=== PATIENT | male | born 1945 | race Caucasian/White ===

== ENCOUNTER 2019-06-29 15:50 | Outpatient (CLI) | payer MEDICARE ==
--- NOTE | 2019-06-29 16:33 | CT ---
CT Stone Protocol 06/29/2019 12:00 AM HISTORY: Calculus of kidney. COMPARISON: Studies on 05/27/2017 and 10/26/2013 obtained [facility]. Technique: Multiple contiguous axial CT images are obtained through the abdomen and pelvis without IV contrast. Coronal reformats are provided. FINDINGS: This examination is limited for the evaluation of solid organs and vascular structures due to the lac k of intravenous contrast. Lower Chest: The lung bases are clear. Abdomen: Liver: Subcentimeter too small to characterize hypodense lesions are again seen in each lobe of liver with a stable larger lobulated hypodense lesion in the lateral segment left hepatic lobe statistically likely related to cysts. These lesions were present on the prior exam. There has been m ild interval enlargement of the larger lesion in the lateral segment left hepatic lobe. Gallbladder: Within normal limits for CT imaging. Pancreas: within normal limits. Spleen: within normal limits. Adrenals: within normal limits. Kidneys: There is an irregular shaped hypodense exophytic lesion posterior aspect midportion right ki dney. This overall measures similar in size to the study in 2017. There was a much larger exophytic hypodense lesions in this region on a prior study in 2008, and findings may be related to interval tr eatment and sclerosis of a large right renal cyst. Clinical correlation is recommended. Although this cystic lesion has irregular margins, the lesion is smaller in size compared to studies in 2008 a 2012 and stable compared to 2017. No renal calculi are seen bilaterally, and there is no evidence of hydronephrosis. Ureters: Small 4 mm calculus is seen in the distal left ureter without significant hydronephrosis or hydroureter present. No distal ureteral calculus is seen.. Pelvis: Urinary bladder: Mostly decompressed. Reproductive Organs: No pelvic masses. Lymph Nodes: No enlarged lymph nodes. Bowel: Colonic diverticulosis is present diffusely throughout the colon. Loops of small bowel are nor mal in caliber. Appendix: The appendix is normal in caliber. Peritoneum: No free fluid, free air, or fluid collection. Retroperitoneum: within normal limits. Vessels: Mild vascular calcifications are seen in the abdominal aorta and iliac arteries. The iliac a rteries are tortuous.. Abdominal Wall: within normal limits. Bones: Degenerative changes are seen in the spine. IMPRESSION: 1. Distal left ureteral calculus measuring 4 mm without hydronephrosis or hydroureter. 2. Stable irregular shaped exophytic cystic lesion posterior aspect midportion right kidney. This is at site of a large exophytic cyst on study in 2009. Findings could be related to interval treatment and possibly sclerosis of the cystic lesion. Clinical correlation suggested. 3. Colonic diverticulosis. 4. Stable hypodense hepatic lesions likely due to hepatic cysts.
== END 2019-06-29 15:51 | disposition home or self-care (01) ==
LOC: BICCT 15:50
PROVIDERS: ATTEND Urology
DX: N20.0 Calculus of kidney (principal); N20.1 Calculus of ureter; N28.1 Cyst of kidney, acquired; K57.30 Diverticulosis of large intestine without perforation or abscess without bleeding; N28.9 Disorder of kidney and ureter, unspecified
CPT/HCPCS: 74176

== ENCOUNTER 2020-05-24 08:48 | Outpatient (CLI) | payer MEDICARE ==
--- NOTE | 2020-05-24 09:09 | ULT ---
ULTRASOUND RETROPERITONEUM LIMITED: (ABDOMINAL AORTA) DATE: 05/24/2020 HISTORY: 74-year-old male resents for screening for abdominal aortic aneurysm FINDINGS: The caliber of the entire abdominal aorta is within normal limits. IMPRESSION: No abdominal aortic aneurysm.
== END 2020-05-24 08:49 | disposition home or self-care (01) ==
LOC: BICULT 08:48
PROVIDERS: ATTEND Internal Medicine
DX: Z13.6 Encounter for screening for cardiovascular disorders (principal)
CPT/HCPCS: 76706

== ENCOUNTER 2023-08-17 17:00 | Outpatient (CLI) | payer MEDICARE | END 2023-08-17 17:01 | disposition home or self-care (01) | LOC: SLEEPLAB 17:00 | PROVIDERS: ATTEND Internal Medicine | DX: G47.33 Obstructive sleep apnea (adult) (pediatric) (principal); R53.83 Other fatigue; F41.8 Other specified anxiety disorders; R06.83 Snoring; I10 Essential (primary) hypertension | CPT/HCPCS: 95810 ==

== ENCOUNTER 2023-10-05 17:00 | Outpatient (CLI) | payer MEDICARE | END 2023-10-05 17:01 | disposition home or self-care (01) | LOC: SLEEPLAB 17:00 | PROVIDERS: ATTEND Internal Medicine | DX: G47.33 Obstructive sleep apnea (adult) (pediatric) (principal); R53.83 Other fatigue; F41.8 Other specified anxiety disorders; R06.83 Snoring; I10 Essential (primary) hypertension | CPT/HCPCS: 95811 ==

== ENCOUNTER 2024-05-19 15:27 | Emergency (ER) | payer MEDICARE, OTHER ==
[2024-05-19 16:13] LABS: #Basophils 0.05 10x3/uL (0.0-0.2); %Basophils 0.7 % (0.0-1.0); %Eosinophils 5.3 % (0.0-10.0); %Lymphocytes 20.4 % (21.0-51.0); %Monocytes 13.7 % (0.0-10.0); %Neutrophils 59.6 % (42.0-75.0); Hematocrit 48.7 % (42.0-52.0); Hemoglobin 16.3 g/dL (14.0-18.0); Mean Corpuscular HGB CONC 33.5 g/dL (32.0-36.0); Mean Corpuscular Hemoglobin 30.7 pg (27.0-31.0); Mean Corpuscular Volume 91.7 fL (78.0-98.0); Mean Platelet Volume 9.4 fL (7.4-10.4); Platelet Count 269 10x3/uL (130-400); RBC Distribution Width 20.7 % (11.5-14.5); Red Blood Cell (RBC) Count 5.31 mill/uL (4.70-6.10)
[2024-05-19 16:35] LABS: ALT (SGPT) 38 U/L (8-55); AST (SGOT) 41 U/L (5-34); Albumin 4.1 g/dL (3.4-4.8); Alkaline Phosphatase 69 U/L (40-110); Anion Gap 16 mmol/L (10-20); BUN (Urea Nitrogen) 16 mg/dL (8.4-25.7); Bilirubin, Total 1.1 mg/dL (0.2-1.2); Calc. Creatinine Clearance 0 mL/min (70-130); Calcium 9.8 mg/dL (7.8-10.44); Carbon Dioxide 26 mmol/L (23-31); Chloride 105 mmol/L (98-107); Estimated GFR 73; Globulin 2.7 g/dL (2.4-3.5); Glucose 99 mg/dL (83-110); Potassium 4.7 mmol/L (3.5-5.1); Protein, Total 6.8 g/dL (5.8-8.1); Sodium 142 mmol/L (136-145)
[2024-05-19 16:40] LABS: Troponin I Less than 0.010 ng/mL (< 0.028)
== END 2024-05-19 17:08 | disposition home or self-care (01) ==
LOC: ERS 15:27
DX: R07.89 Other chest pain (principal); I11.0 Hypertensive heart disease with heart failure; I50.9 Heart failure, unspecified; I48.91 Unspecified atrial fibrillation; E78.5 Hyperlipidemia, unspecified; Z79.01 Long term (current) use of anticoagulants; Z79.899 Other long term (current) drug therapy
CPT/HCPCS: 36415; 71045; 80053; 84484; 85025; 93005

== ENCOUNTER 2025-06-24 22:38 | Inpatient (IN) | payer MEDICARE, OTHER ==
[2025-06-24 23:13] LABS: #Basophils 0.05 10x3/uL (0.0-0.2); #Eosinophils 0.13 10x3/uL (0.0-0.7); #Monocytes 1.42 10x3/uL (0.11-0.59); #Neutrophils 13.80 10x3/uL (1.40-6.50); %Basophils 0.3 % (0.0-1.0); %Eosinophils 0.8 % (0.0-10.0); %Lymphocytes 10.1 % (21.0-51.0); %Monocytes 8.2 % (0.0-10.0); %Neutrophils 80.1 % (42.0-75.0); Hematocrit 41.1 % (42.0-52.0); Hemoglobin 13.2 g/dL (14.0-18.0); Mean Corpuscular Hemoglobin 28.8 pg (27.0-31.0); Mean Corpuscular Volume 89.5 fL (78.0-98.0); Platelet Count 307 10x3/uL (130-400); Red Blood Cell (RBC) Count 4.59 mill/uL (4.70-6.10); White Blood Cell (WBC) Count 17.22 10x3/uL (4.8-10.8)
[2025-06-24 23:31] LABS: ALT (SGPT) 25 U/L (Less than 45); AST (SGOT) 84 U/L (11-34); Albumin 3.9 g/dL (3.1-4.5); Alkaline Phosphatase 56 U/L (40-110); Anion Gap 14 mmol/L (10-20); BUN (Urea Nitrogen) 21 mg/dL (8.4-25.7); Bilirubin, Total 0.5 mg/dL (0.3-1.2); Calc. Creatinine Clearance 0 mL/min (70-130); Calcium 9.1 mg/dL (7.8-10.44); Carbon Dioxide 24 mmol/L (23-31); Chloride 105 mmol/L (98-107); Globulin 2.9 g/dL (2.4-3.5); Glucose 120 mg/dL (83-110); Potassium 4.3 mmol/L (3.5-5.1); Sodium 139 mmol/L (136-145)
[2025-06-25 03:28] VITALS: BMI 28.5
[2025-06-25] MEDS ORDERED: Acetaminophen 325 MG TAB PO PRN (04:23)
[2025-06-25] MEDS ORDERED: Ondansetron PF 4 MG/2 ML Vial IVP PRN (04:23)
[2025-06-25 05:16] LABS: Troponin I 6.396 ng/mL (< 0.028)
[2025-06-25] MEDS: Apixaban 5 MG TAB PO SCH (08:09)
[2025-06-25 08:53] LABS: Troponin I 6.527 ng/mL (< 0.028)
[2025-06-25 09:44] LABS: #Basophils 0.05 10x3/uL (0.0-0.2); #Eosinophils 0.40 10x3/uL (0.0-0.7); #Monocytes 0.99 10x3/uL (0.11-0.59); #Neutrophils 10.45 10x3/uL (1.40-6.50); %Basophils 0.4 % (0.0-1.0); %Eosinophils 2.9 % (0.0-10.0); %Lymphocytes 13.0 % (21.0-51.0); %Monocytes 7.2 % (0.0-10.0); %Neutrophils 76.1 % (42.0-75.0); Hematocrit 40.6 % (42.0-52.0); Hemoglobin 12.6 g/dL (14.0-18.0); Mean Corpuscular Hemoglobin 28.2 pg (27.0-31.0); Mean Corpuscular Volume 90.8 fL (78.0-98.0); Platelet Count 271 10x3/uL (130-400); Red Blood Cell (RBC) Count 4.47 mill/uL (4.70-6.10); White Blood Cell (WBC) Count 13.73 10x3/uL (4.8-10.8)
[2025-06-25 10:16] LABS: Anion Gap 12 mmol/L (10-20); BUN (Urea Nitrogen) 21 mg/dL (8.4-25.7); Calc. Creatinine Clearance 75 mL/min (70-130); Calcium 8.7 mg/dL (7.8-10.44); Carbon Dioxide 28 mmol/L (23-31); Chloride 105 mmol/L (98-107); Glucose 127 mg/dL (83-110); Potassium 4.1 mmol/L (3.5-5.1); Sodium 141 mmol/L (136-145)
[2025-06-25 10:23] LABS: Critical Call Chem Troponin I RESULT DECREASING; Troponin I 6.343 ng/mL (< 0.028)
[2025-06-25] MEDS ORDERED: Non-Formulary Item 1 EACH (Buspirone Hcl [Buspirone Hcl] 15 MG Tablet) PO SCH (21:00)
[2025-06-26 00:18] LABS: Bacteria/HPF None Seen HPF (None Seen); CAUTI Indications for Culture Dysuria,urgency,freq; Glucose, Urine (Dipstick) Normal (Negative); Leukocyte Negative Leu/uL (Negative); Protein, Urine (Dipstick) Negative (Neg-Trace); RBC/HPF 0-3 HPF (0-3); Specific Gravity, Urine 1.014 (1.002-1.036); WBC/HPF 0-3 HPF (0-3)
[2025-06-26 00:29] LABS: Urine Culture Reflex No No
[2025-06-26 04:57] LABS: #Basophils 0.08 10x3/uL (0.0-0.2); #Eosinophils 0.68 10x3/uL (0.0-0.7); #Monocytes 1.33 10x3/uL (0.11-0.59); #Neutrophils 7.72 10x3/uL (1.40-6.50); %Basophils 0.7 % (0.0-1.0); %Eosinophils 5.7 % (0.0-10.0); %Lymphocytes 16.9 % (21.0-51.0); %Monocytes 11.2 % (0.0-10.0); %Neutrophils 65.0 % (42.0-75.0); Hematocrit 38.3 % (42.0-52.0); Hemoglobin 12.2 g/dL (14.0-18.0); Mean Corpuscular Hemoglobin 28.8 pg (27.0-31.0); Mean Corpuscular Volume 90.5 fL (78.0-98.0); Platelet Count 252 10x3/uL (130-400); Red Blood Cell (RBC) Count 4.23 mill/uL (4.70-6.10); White Blood Cell (WBC) Count 11.88 10x3/uL (4.8-10.8)
[2025-06-26 05:15] LABS: Anion Gap 11 mmol/L (10-20); BUN (Urea Nitrogen) 18 mg/dL (8.4-25.7); Calc. Creatinine Clearance 84 mL/min (70-130); Calcium 8.5 mg/dL (7.8-10.44); Carbon Dioxide 25 mmol/L (23-31); Chloride 106 mmol/L (98-107); Glucose 93 mg/dL (83-110); Potassium 4.3 mmol/L (3.5-5.1); Sodium 138 mmol/L (136-145)
[2025-06-26] MEDS ORDERED: PROPOFOL 20 ML ONE (12:37)
[2025-06-26] MEDS: Calcitriol 0.25 MCG CAP PO SCH (13:34)
[2025-06-26] MEDS ORDERED: Lidocaine 1% PF 5 ML VIAL ONE (13:45)
[2025-06-26] MEDS: Rosuvastatin 5 MG TAB PO SCH (22:02)
[2025-06-28 10:58] VITALS: BP 128/80; TEMP 98.1
== END 2025-06-28 12:30 | disposition home or self-care (01) | DRG 309 ==
LOC: ERS 22:38 → 2NO 06-25 02:47 → OBSVTOIN 06-27 08:23
PROVIDERS: ADMIT Internal Medicine; ATTEND Emergency Medicine
PROC: 5A09357 Assistance with Respiratory Ventilation, Less than 24 Consecutive Hours, Continuous Positive Airway Pressure (ICD-10-PCS; 2025-06-25)
PROC: 5A2204Z Restoration of Cardiac Rhythm, Single (ICD-10-PCS; principal; 2025-06-26)
DX: I48.19 Other persistent atrial fibrillation (principal); I50.22 Chronic systolic (congestive) heart failure; I48.92 Unspecified atrial flutter; I11.0 Hypertensive heart disease with heart failure; E78.5 Hyperlipidemia, unspecified; G47.33 Obstructive sleep apnea (adult) (pediatric); R79.89 Other specified abnormal findings of blood chemistry; D72.829 Elevated white blood cell count, unspecified; F41.9 Anxiety disorder, unspecified; F42.9 Obsessive-compulsive disorder, unspecified; N40.0 Benign prostatic hyperplasia without lower urinary tract symptoms; Z98.890 Other specified postprocedural states; Z82.49 Family history of ischemic heart disease and other diseases of the circulatory system; Z91.041 Radiographic dye allergy status; Z87.442 Personal history of urinary calculi; Z79.899 Other long term (current) drug therapy; Z79.01 Long term (current) use of anticoagulants; I49.5 Sick sinus syndrome; F31.9 Bipolar disorder, unspecified
CPT/HCPCS: 36415; 71045; 80048; 80053; 81001; 84484; 85025; 92960; 93005; 93010; 93312; G0378; J2704

== ENCOUNTER 2025-07-31 16:16 | Emergency (ER) | payer MEDICARE, OTHER | END 2025-07-31 21:00 | disposition home or self-care (01) | LOC: ERS 16:16 | DX: S00.01XA Abrasion of scalp, initial encounter (principal); I11.0 Hypertensive heart disease with heart failure; I50.9 Heart failure, unspecified; I48.91 Unspecified atrial fibrillation; Z79.01 Long term (current) use of anticoagulants; Z55.6 Problems related to health literacy; W18.30XA Fall on same level, unspecified, initial encounter | CPT/HCPCS: 70450; 72125 ==

== ENCOUNTER 2025-08-04 08:57 | Emergency (ER) | payer MEDICARE, OTHER ==
[2025-08-04 09:21] LABS: #Basophils 0.06 10x3/uL (0.0-0.2); #Eosinophils 0.30 10x3/uL (0.0-0.7); #Monocytes 1.15 10x3/uL (0.11-0.59); #Neutrophils 7.17 10x3/uL (1.40-6.50); %Basophils 0.6 % (0.0-1.0); %Eosinophils 2.8 % (0.0-10.0); %Lymphocytes 19.5 % (21.0-51.0); %Monocytes 10.6 % (0.0-10.0); %Neutrophils 66.0 % (42.0-75.0); Hematocrit 43.8 % (42.0-52.0); Hemoglobin 13.8 g/dL (14.0-18.0); Mean Corpuscular Hemoglobin 26.8 pg (27.0-31.0); Mean Corpuscular Volume 85.0 fL (78.0-98.0); Platelet Count 310 10x3/uL (130-400); Red Blood Cell (RBC) Count 5.15 mill/uL (4.70-6.10); White Blood Cell (WBC) Count 10.84 10x3/uL (4.8-10.8)
[2025-08-04 09:37] LABS: ALT (SGPT) 16 U/L (Less than 45); AST (SGOT) 26 U/L (11-34); Albumin 3.9 g/dL (3.1-4.5); Alkaline Phosphatase 63 U/L (40-110); Anion Gap 14 mmol/L (10-20); BUN (Urea Nitrogen) 11 mg/dL (8.4-25.7); Bilirubin, Total 0.7 mg/dL (0.3-1.2); Calc. Creatinine Clearance 0 mL/min (70-130); Calcium 8.9 mg/dL (7.8-10.44); Carbon Dioxide 22 mmol/L (23-31); Chloride 105 mmol/L (98-107); Globulin 2.8 g/dL (2.4-3.5); Glucose 107 mg/dL (83-110); Potassium 4.5 mmol/L (3.5-5.1); Sodium 136 mmol/L (136-145)
== END 2025-08-04 12:30 | disposition home or self-care (01) ==
LOC: ERS 08:57
DX: I48.91 Unspecified atrial fibrillation (principal); I11.0 Hypertensive heart disease with heart failure; I50.9 Heart failure, unspecified; R00.1 Bradycardia, unspecified; Z79.01 Long term (current) use of anticoagulants; Z79.899 Other long term (current) drug therapy
CPT/HCPCS: 71045; 80053; 83880; 84484; 85025; 93005

== ENCOUNTER 2025-08-05 08:38 | Emergency (ER) | payer MEDICARE, OTHER ==
[2025-08-05 08:54] LABS: #Basophils 0.06 10x3/uL (0.0-0.2); #Eosinophils 0.23 10x3/uL (0.0-0.7); #Monocytes 0.93 10x3/uL (0.11-0.59); #Neutrophils 7.61 10x3/uL (1.40-6.50); %Basophils 0.6 % (0.0-1.0); %Eosinophils 2.2 % (0.0-10.0); %Lymphocytes 13.6 % (21.0-51.0); %Monocytes 9.1 % (0.0-10.0); %Neutrophils 74.2 % (42.0-75.0); Hematocrit 42.9 % (42.0-52.0); Hemoglobin 13.0 g/dL (14.0-18.0); Mean Corpuscular Hemoglobin 26.5 pg (27.0-31.0); Mean Corpuscular Volume 87.4 fL (78.0-98.0); Platelet Count 308 10x3/uL (130-400); Red Blood Cell (RBC) Count 4.91 mill/uL (4.70-6.10); White Blood Cell (WBC) Count 10.26 10x3/uL (4.8-10.8)
[2025-08-05 09:21] LABS: ALT (SGPT) 17 U/L (Less than 45); AST (SGOT) 23 U/L (11-34); Albumin 3.8 g/dL (3.1-4.5); Alkaline Phosphatase 64 U/L (40-110); Anion Gap 14 mmol/L (10-20); BUN (Urea Nitrogen) 14 mg/dL (8.4-25.7); Bilirubin, Total 0.8 mg/dL (0.3-1.2); Calc. Creatinine Clearance 0 mL/min (70-130); Calcium 9.3 mg/dL (7.8-10.44); Carbon Dioxide 23 mmol/L (23-31); Chloride 104 mmol/L (98-107); Globulin 2.8 g/dL (2.4-3.5); Glucose 105 mg/dL (83-110); Potassium 4.3 mmol/L (3.5-5.1); Sodium 137 mmol/L (136-145)
== END 2025-08-05 11:15 | disposition home or self-care (01) ==
LOC: ERS 08:38
DX: R00.2 Palpitations (principal); I11.0 Hypertensive heart disease with heart failure; I50.9 Heart failure, unspecified; I48.91 Unspecified atrial fibrillation; E78.5 Hyperlipidemia, unspecified; Z55.6 Problems related to health literacy
CPT/HCPCS: 36415; 71045; 80053; 83880; 84484; 85025; 93005; 94760